=== PATIENT | male | born 1950 | race Caucasian/White ===

== ENCOUNTER 2021-04-18 14:43 | Emergency (ER) | payer OTHER ==
[~2021-04-18] VITALS: Ht 175 cm; Wt 101.6 kg
[~2021-04-18 14:43] MED LIST: CLCX200C PO; CYCL10TA9 PO; EZET1TAB43 PO; HYDR-1231 PO; LORATAB PO; METH4TAB PO; OMEP20CA12 PO; RNT150T PO; SULF1TAB38 PO; TEST200V3 IM; WRF2.5T PO; [UNRECOGNIZED DRUG - REMARK]
--- NOTE | 2021-04-18 15:12 | ED GU-Male ---
General Chief Complaint: - Reproductive Stated Complaint: SEVERE KIDNEY PAIN Source: patient Exam Limitations: no limitations History of Present Illness Date Seen by Provider: Apr 18, 2021 Time Seen by Provider: 14:57 Initial Comments Patient presents ER by private conveyance from home with chief complaint of low second day of right inguinal and right flank pain reminiscent of kidney stone. He says he took a tramadol yesterday when the pain became very intense. This is only minimal now. He thought it had gone away and passed overnight but about 4:00 in the morning he was awoken with severe pain again. He has a history of multiple kidney stones. He had to have a couple lithotripsies in the past. [facility] No nausea vomiting diarrhea or constipation. No other intra- abdominal surgeries Allergies and Home Medications Allergies Coded Allergies: No Known Drug Allergies (Unverified , 12/20/09) Patient Home Medication List Home Medication List Reviewed: Yes Cephalexin (Cephalexin) 500 Mg Tablet, 500 MG PO BID Prescribed by: LUKE SAMUELS on 04/18/21 1543 Cyclobenzaprine Hcl (Cyclobenzaprine Hcl) 10 Mg Tablet, 10 MG PO TID PRN for MUSCLE SPASMS, (Reported) Entered as Reported by: VALDEMAR PATEL on 02/03/14 1614 Hydrocodone Bit/Acetaminophen (Hydrocodone-Apap 5-325 Tablet) 1 Tab Tablet, 1 TAB PO Q4H PRN for PAIN, (Reported) Entered as Reported by: VALDEMAR PATEL on 02/03/14 1615 Omeprazole (Omeprazole) 20 Mg Capsule.dr, 20 MG PO DAILY, (Reported) Entered as Reported by: VALDEMAR PATEL on 02/03/14 1614 Ondansetron (Ondansetron Odt) 4 Mg Tab.rapdis, 4 MG PO Q6H PRN for NAUSEA/VOMI TING Prescribed by: LUKE SAMUELS on 04/18/21 1543 Ranitidine Hcl (Zantac 150 Mg) 150 Mg Tablet, 150 MG PO DAILY, (Reported) Entered as Reported by: VALDEMAR PATEL on 02/03/14 1614 Review of Systems Review of Systems Constitutional: No chills, No diaphoresis EENTM: No ear discharge, No ear pain Respiratory: No cough, No short of breath Cardiovascular: No chest pain, No palpitations Gastrointestinal: No abdominal pain, No diarrhea, No nausea, No vomiting Genitourinary: denies burning, denies discharge Musculoskeletal: back pain (Right flank); No joint pain Skin: No pruritus, No rash All Other Systemes Reviewed Negative Unless Noted: Yes Past Kvxtqwt-Bpjbtc-Cwuccf Hx Patient Social History Tobacco Use?: No Use of E-Cig and/or Vaping dev: No Substance use?: No Alcohol Use?: Yes Alcohol type: Beer Alcohol Frequency: Rarely Immunizations Up To Date Tetanus Booster (TDap): Less than 5yrs Past Medical History Kidney Stones Gastroesophageal Reflux Arthritis Skin Family Medical History Arthritis 19 FATHER 19 MOTHER G8 BROTHER G8 SISTER Colon cancer 19 FATHER 19 MOTHER Dementia 19 MOTHER Diabetes mellitus 19 FATHER Hypertension 19 FATHER Thyroid disease 19 MOTHER No Family History of: AIDS Abdominal aortic aneurysm Alcoholism Alzheimer's disease Cancer of mouth Completed stroke Drug abuse Myocardial infarction Parkinson's disease Prostate cancer Psychosocial problem Respiratory disorder Seizure disorder Severe allergy Tuberculosis Physical Exam Vital Signs Vital Signs - First Documented 04/18/21 15:00 Temp 36.2 Pulse 78 Resp 16 B/P (MAP) 154/103 (120) Pulse Ox 97 O2 Delivery Room Air Capillary Refill : Height, Weight, BMI Height: 5'9.00" Weight: 210lbs. oz. 95.312079bc; BMI Method:Stated General Appearance: WD/WN, mild distress HEENT: PERRL/EOMI, pharynx normal Neck: full range of motion, normal inspection Cardiovascular: normal peripheral pulses, regular rate, rhythm Respiratory: no respiratory distress, no accessory muscle use Gastrointestinal: soft, tenderness (Right lower quadrant without rebound tenderness Rovsing sign or mesenteric signs) Back: normal inspection, CVA tenderness (R) Neurologic/Psychiatric: alert, normal mood/affect Skin: normal color, warm/dry Progress/Results/Core Measures Suspected Sepsis SIRS Temperature: Pulse: Respiratory Rate: Blood Pressure / Mean: Results/Orders Lab Results Laboratory Tests Test 04/18/21 15:00 Range/Units Urine Color YELLOW Urine Clarity CLEAR Urine pH 5.5 5-9 Urine Specific [place] 1.025 H 1.016-1.022 Urine Protein NEGATIVE NEGATIVE Urine Glucose (UA) NEGATIVE NEGATIVE Urine Ketones NEGATIVE NEGATIVE Urine Nitrite NEGATIVE NEGATIVE Urine Bilirubin NEGATIVE NEGATIVE Urine Urobilinogen 0.2 < = 1.0 MG/DL Urine Leukocyte Esterase NEGATIVE NEGATIVE Urine RBC (Auto) 3+ H NEGATIVE Urine RBC 5-10 H /HPF Urine WBC NONE /HPF Urine Crystals PRESENT H /LPF Urine Amorphous Sediment RARE DANIA URATES H /LPF Urine Bacteria NEGATIVE /HPF Urine Casts NONE /LPF Urine Mucus NEGATIVE /LPF Urine Culture Indicated NO My Orders Orders - LUKE SAMUELS Ua Culture If Indicated (04/18/21 15:00) Ct Abd/Pelvis Wo(Kidney Stone) (04/18/21 15:05) Ketorolac Injection (Toradol Injection) (04/18/21 15:15) Abdomen/Kub 1view (04/18/21 15:06) Medications Given in ED Current Medications Medications Dose Ordered Sig/Olivier Route Start Time Stop Time Status Last Admin Dose Admin Ketorolac Tromethamine 60 mg ONCE ONCE IM 04/18/21 15:15 04/18/21 15:16 DC 04/18/21 15:45 60 MG Vital Signs/I&O 04/18/21 15:00 Temp 36.2 Pulse 78 Resp 16 B/P (MAP) 154/103 (120) Pulse Ox 97 O2 Delivery Room Air Capillary Refill : Progress Note : Time: 15:11 Progress Note Offer the patient some Toradol for pain. CT of the abdomen pelvis kidney stone study. [facility] Diagonstic Imaging: CT Plain Films/CT/US/NM/MRI: abdomen, pelvis Comments Right ureter 6 mm calculus just proximal to the ureterovesicular junction. NAME: CHARMAINE AMAYA [facility] REC#: [id number] PT STATUS: REG ER : 1950 PHYSICIAN: LUKE SAMUELS MD ADMIT DATE: 04/18/21/ER Draft Date of Exam:04/18/21 CT ABD/PELVIS WO(KIDNEY STONE) EXAMINATION: CT abdomen and pelvis without contrast. TECHNIQUE: Multiple contiguous axial images were obtained through the abdomen and pelvis without the use of intravenous contrast. All CT scans use one or more of the following dose optimizing techniques: automated exposure control, MA and/or KvP adjustment based on patient size and exam type or iterative reconstruction. HISTORY: Flank pain, kidney stone suspected COMPARISON: 08/06/2015. FINDINGS: Lung bases: There are calcified pleural plaques. Solid organs: Diffuse hypoattenuation of the liver compatible with hepatic steatosis. The gallbladder is normal. There is no biliary ductal dilation. Pancreas is normal. Spleen is normal. Adrenal glands are normal. There is a 0.7 cm calculus within the distal right ureter resulting in moderate hydronephrosis and hydroureter. Additional nonobstructing left renal calculi measuring up to 1.0 cm. Bowel: The stomach and small bowel are normal without obstruction. There are a few scattered colonic diverticula. The appendix is normal. Peritoneum: There is no intraperitoneal free fluid or free air. No suspicious lymphadenopathy. Vasculature: Calcification of the aorta without aneurysm. Musculoskeletal: Surgical and degenerative changes of the spine without suspicious osseous lesion or compression fracture. There is a small fat-containing periumbilical hernia. Pelvis: The prostate gland is normal. The urinary bladder is normal. IMPRESSION: 1. A 0.7 cm obstructing calculus within the distal right ureter resulting in right-sided hydronephrosis. 2. Additional nonobstructing renal calculi measuring up to 1.0 cm. 3. Hepatic steatosis. Dictated on workstation # [id number] Dict: 04/18/21 1526 Trans: 04/18/21 1536 [id number] Interpreted by: NAMAN OLVERA DO Electronically signed by: Reviewed: Reviewed by [place] Diagonstic Imaging: Xray Plain Films/CT/US/NM/MRI: abdomen, pelvis Comments Unremarkable bowel gas pattern. Possible shadow of a right-sided 7 mm ureterovesicular stone noted. [facility] [place] [place] NAME: CHARMAINE AMAYA [facility] REC#: [id number] PT STATUS: REG ER : 1950 PHYSICIAN: LUKE SAMUELS MD ADMIT DATE: 04/18/21/ER Draft Date of Exam:04/18/21 ABDOMEN/KUB 1VIEW INDICATION: Right Kidney stone. TECHNIQUE: Two supine views of the abdomen, 3:30 PM CORRELATION STUDY: 04/02/2011. CT 04/18/2021 FINDINGS: Calcified plaque-like densities at both lung bases. Probable hiatal hernia. Bowel gas pattern is nonobstructed. No evidence for large fecal impaction. 8 mm calcification of the right lower pelvis consistent with the known distal right ureteral stone. Additional calcifications superimposed over both kidneys, right greater than left. Large grouping of calcifications over the inferior pole of the right kidney measuring up to approximately 12 mm. Prior lumbar spine surgery with internal fixation hardware and cerclage wires at L3, L4 and L5 levels. IMPRESSION: 8 mm stone in the right hemipelvis compatible with known distal right ureteral calcification. Dictated on workstation # [id number] Dict: 04/18/21 1530 Trans: 04/18/21 1544 [facility] [id number] Interpreted by: TANA MORIN DO Electronically signed by: Reviewed: Reviewed by Me Departure Impression Primary Impression: Right ureteral calculus Disposition: HOME, SELF-CARE Condition: Stable Departure-Patient Inst. Decision time for Depature: 15:31 Referrals: DOMONIQUE PETER DO (PCP) Primary Care Physician AVTAR FIUGEROA MD Patient Instructions: Kidney Stones (DC) Add. Discharge Instructions: Drink lots of fluids. Tylenol 650 mg every 8 hours as needed for pain. Motrin 800 mg every 8 hours as needed for pain. Heat applied to the back as needed. Tramadol 1 tablet every 6 hours as necessary for breakthrough pain. Ondansetron 1 tablet every 6 hours under the tongue as necessary for nausea and/or vomiting. Keflex 1 capsule twice a day for the next week to treat possible UTI. Strain your urine using the strainer to see when the stones pass. Occasionally stones will break up and not be caught in the strainer. Symptoms should resolve 1 to 2 days after the passing of stones. If your symptoms are going on into early next week then I suggest you follow-up with Dr. Figueroa, urology. Return to the nearest ER if you are having intractable pain and/or nausea, fever etc. All discharge instructions reviewed with patient and/or family. Voiced understanding. Scripts Ondansetron (Ondansetron Odt) 4 Mg Tab.rapdis 4 MG PO Q6H PRN for NAUSEA/VOMITING, #10 TAB 0 Refills Prov: LUKE SAMUELS 04/18/21 Cephalexin (Cephalexin) 500 Mg Tablet 500 MG PO BID for 7 Days, #14 TAB 0 Refills Prov: LUKE SAMUELS 04/18/21 Copy Copies To 1: AVTAR FIGUEROA MD, TITUS J Apr 18, 2021 15:12
[2021-04-18] MEDS ORDERED: KETOROLAC 60 MG/2 ML VIAL IM ONE (15:15)
[2021-04-18 15:22] LABS: BILIRUBIN,URINE NEGATIVE (NEGATIVE); CLARITY,URINE CLEAR; COLOR,URINE YELLOW; GLUCOSE, URINE (UA) NEGATIVE (NEGATIVE); KETONES,URINE NEGATIVE (NEGATIVE); LEUKOCYTE ESTERASE ,URINE NEGATIVE (NEGATIVE); NITRITE,URINE NEGATIVE (NEGATIVE); PH,URINE 5.5 (5-9); PROTEIN,URINE NEGATIVE (NEGATIVE)
--- NOTE | 2021-04-18 15:36 | Diagnostic Imaging Report ---
EXAMINATION: CT abdomen and pelvis without contrast. TECHNIQUE: Multiple contiguous axial images were obtained through the abdomen and pelvis without the use of intravenous contrast. All CT scans use one or more of the following dose optimizing techniques: automated exposure control, MA and/or KvP adjustment based on patient size and exam type or iterative reconstruction. HISTORY: Flank pain, kidney stone suspected COMPARISON: 08/06/2015. FINDINGS: Lung bases: There are calcified pleural plaques. Solid organs: Diffuse hypoattenuation of the liver compatible with hepatic steatosis. The gallbladder is normal. There is no biliary ductal dilation. Pancreas is normal. Spleen is normal. Adrenal glands are normal. There is a 0.7 cm calculus within the distal right ureter resulting in moderate hydronephrosis and hydroureter. Additional nonobstructing left renal calculi measuring up to 1.0 cm. Bowel: The stomach and small bowel are normal without obstruction. There are a few scattered colonic diverticula. The appendix is normal. Peritoneum: There is no intraperitoneal free fluid or free air. No suspicious lymphadenopathy. Vasculature: Calcification of the aorta without aneurysm. Musculoskeletal: Surgical and degenerative changes of the spine without suspicious osseous lesion or compression fracture. There is a small fat-containing periumbilical hernia. Pelvis: The prostate gland is normal. The urinary bladder is normal. IMPRESSION: 1. A 0.7 cm obstructing calculus within the distal right ureter resulting in right-sided hydronephrosis. 2. Additional nonobstructing renal calculi measuring up to 1.0 cm. 3. Hepatic steatosis. Dictated by: Dictated on workstation # [id number]
[2021-04-18] MEDS ORDERED: CEPH500T PO (15:43)
[2021-04-18] MEDS ORDERED: ONDA4TAB11 PO (15:43)
--- NOTE | 2021-04-18 15:45 | Diagnostic Imaging Report ---
INDICATION: Right Kidney stone. TECHNIQUE: Two supine views of the abdomen, 3:30 PM CORRELATION STUDY: 04/02/2011. CT 04/18/2021 FINDINGS: Calcified plaque-like densities at both lung bases. Probable hiatal hernia. Bowel gas pattern is nonobstructed. No evidence for large fecal impaction. 8 mm calcification of the right lower pelvis consistent with the known distal right ureteral stone. Additional calcifications superimposed over both kidneys, right greater than left. Large grouping of calcifications over the inferior pole of the right kidney measuring up to approximately 12 mm. Prior lumbar spine surgery with internal fixation hardware and cerclage wires at L3, L4 and L5 levels. IMPRESSION: 8 mm stone in the right hemipelvis compatible with known distal right ureteral calcification. Dictated by: Dictated on workstation # [id number]
[2021-04-18 15:50] LABS: AMORPHOUS SEDIMENT,UR RARE AMOR URATES /LPF; BACTERIA,URINE NEGATIVE /HPF
[2021-04-18 15:54] VITALS: BP 142/94
[2021-04-19] MEDS ORDERED: CEPH500T PO (14:15)
[2021-04-19] MEDS ORDERED: ACHD5005 PO (14:15)
== END 2021-04-18 15:55 | disposition home or self-care (01) ==
LOC: EDUNIT# 14:43 → ER 14:47
DX: N13.2 Hydronephrosis with renal and ureteral calculous obstruction (principal); K21.9 Gastro-esophageal reflux disease without esophagitis; Z79.899 Other long term (current) drug therapy
CPT/HCPCS: 74018; 74176; 81000

== ENCOUNTER 2021-04-19 09:46 | Emergency (ER) | payer OTHER ==
[~2021-04-19] VITALS: Ht 174 cm; Wt 101.6 kg
[~2021-04-19 09:46] MED LIST changes: +CEPH500T PO; +ONDA4TAB11 PO
[2021-04-19] MEDS ORDERED: KETOROLAC 30 MG/ML VIAL IVP ONE (10:00)
[2021-04-19] MEDS ORDERED: LACTATED RINGERS 1,000 ML IV ONE ×2 (10:00→11:45)
[2021-04-19] MEDS ORDERED: ONDANSETRON 4 MG/2 ML (SDV) Z0FRAN IVP ONE (10:00)
[2021-04-19] MEDS ORDERED: cefTRIAXone 1 GM PRE-MIX 50 ML IV ONE (10:00)
--- NOTE | 2021-04-19 10:01 | ED GU-Male ---
General Chief Complaint: Abdominal/GI Problems Stated Complaint: KIDNEY PAIN Nursing Triage Note: PT HAS HX OF KIDNEY STONE, CONTINUED PAIN AND MILD NAUSEA, WAS SEEN HERE YESTERDAY FOR THE SAME. Source: patient Exam Limitations: no limitations History of Present Illness Date Seen by Provider: Apr 19, 2021 Time Seen by Provider: 09:45 Initial Comments Patient to the ER by private conveyance from home with chief complaint of splitting right flank pain from a second day of kidney stone. He was here yesterday and received a CT scan, dose of Toradol was lasting for about 8 or 9 hours. He took some tramadol that he had already been using and was helping with his pain but states that it is not doing anything for his pain now. Is having some nausea almost vomited in the lobby. [facility] to come out here to do what ever needed to be done. The stone was approaching 8 mm in diameter and he was encouraged to follow-up with urology. He has not made contact with him yet as he left the ER after hours. Patient states that he has been drinking lots of fluids and has only put out about 200 cc of urine since he was in the ER yesterday. He has not picked up the antibiotics yet. He takes Flomax routinely Allergies and Home Medications Allergies Coded Allergies: No Known Drug Allergies (Unverified , 12/20/09) Patient Home Medication List Home Medication List Reviewed: Yes Cephalexin (Cephalexin) 500 Mg Tablet, 500 MG PO BID Prescribed by: LUKE SAMUELS on 04/18/21 1543 Cyclobenzaprine Hcl (Cyclobenzaprine Hcl) 10 Mg Tablet, 10 MG PO TID PRN for MUSCLE SPASMS, (Reported) Entered as Reported by: VALDEMAR PATEL on 02/03/14 161 Hydrocodone Bit/Acetaminophen (Hydrocodone-Apap 5-325 Tablet) 1 Tab Tablet, 1 TAB PO Q4H PRN for PAIN, (Reported) Entered as Reported by: VALDEMAR PATEL on 02/03/14 161 Omeprazole (Omeprazole) 20 Mg Capsule.dr, 20 MG PO DAILY, (Reported) Entered as Reported by: VALDEMAR PATEL on 02/03/14 161 Ondansetron (Ondansetron Odt) 4 Mg Tab.rapdis, 4 MG PO Q6H PRN for NAUSEA/VOMITING Prescribed by: LUKE SAMUELS on 04/18/21 1543 Ranitidine Hcl (Zantac 150 Mg) 150 Mg Tablet, 150 MG PO DAILY, (Reported) Entered as Reported by: VALDEMAR PATEL on 02/03/14 1614 Review of Systems Review of Systems Constitutional: No chills, No diaphoresis EENTM: No ear discharge, No ear pain Respiratory: No cough, No short of breath Cardiovascular: No chest pain, No edema Gastrointestinal: abdominal pain; No constipation, No diarrhea Genitourinary: denies discharge, denies dysuria Musculoskeletal: back pain; No joint pain All Other Systemes Reviewed Negative Unless Noted: Yes Past Hpjcxpu-Surcjc-Dfxezq Hx Patient Social History Tobacco Use?: No Use of E-Cig and/or Vaping dev: No Immunizations Up To Date Tetanus Booster (TDap): Less than 5yrs First/Initial COVID19 Vaccinat: N/A Past Medical History Kidney Stones Gastroesophageal Reflux Arthritis Skin Family Medical History Arthritis 19 FATHER 19 MOTHER G8 BROTHER G8 SISTER Colon cancer 19 FATHER 19 MOTHER Dementia 19 MOTHER Diabetes mellitus 19 FATHER Hypertension 19 FATHER Thyroid disease 19 MOTHER No Family History of: AIDS Abdominal aortic aneurysm Alcoholism Alzheimer's disease Cancer of mouth Completed stroke Drug abuse Myocardial infarction Parkinson's disease Prostate cancer Psychosocial problem Respiratory disorder Seizure disorder Severe allergy Tuberculosis Physical Exam Vital Signs Vital Signs - First Documented 04/19/21 09:53 Temp 36.8 Pulse 71 Resp 22 B/P (MAP) 150/114 (126) Pulse Ox 97 O2 Delivery Room Air Capillary Refill : Less Than 3 Seconds Height, Weight, BMI Height: 5'9.00" Weight: 210lbs. oz. 95.502317tu; 33.00 BMI Method:Stated General Appearance: WD/WN, moderate distress HEENT: PERRL/EOMI, pharynx normal Neck: full range of motion, normal inspection Cardiovascular: normal peripheral pulses, regular rate, rhythm Respiratory: no respiratory distress, no accessory muscle use Gastrointestinal: normal bowel sounds, soft, tenderness (Right lower quadrant) Back: normal inspection, CVA tenderness (R) Neurologic/Psychiatric: alert, oriented x 3 Skin: normal color, warm/dry Progress/Results/Core Measures Suspected Sepsis SIRS Temperature: Pulse: 71 Respiratory Rate: 22 Laboratory Tests 04/19/21 10:00: White Blood Count 11.6H Blood Pressure 150 /114 Mean: 126 Laboratory Tests 04/19/21 10:00: Creatinine 1.64H, Platelet Count 218, Total Bilirubin 1.3H Results/Orders Lab Results Laboratory Tests Test 04/19/21 10:00 04/19/21 13:10 Range/Units White Blood Count 11.6 H 4.3-11.0 10^3/uL Red Blood Count 5.19 4.30-5.52 10^6/uL Hemoglobin 16.4 13.3-17.7 g/dL Hematocrit 48 40-54 % Mean Corpuscular Volume 93 80-99 fL Mean Corpuscular Hemoglobin 32 25-34 pg Mean Corpuscular Hemoglobin Concent 34 32-36 g/dL Red Cell Distribution Width 12.7 10.0-14.5 % Platelet Count 218 130-400 10^3/uL Mean Platelet Volume 9.4 9.0-12.2 fL Immature Granulocyte % (Auto) 1 % Neutrophils (%) (Auto) 79 H 42-75 % Lymphocytes (%) (Auto) 9 L 12-44 % Monocytes (%) (Auto) 10 0-12 % Eosinophils (%) (Auto) 1 0-10 % Basophils (%) (Auto) 1 0-10 % Neutrophils # (Auto) 9.1 H 1.8-7.8 10^3/uL Lymphocytes # (Auto) 1.1 1.0-4.0 10^3/uL Monocytes # (Auto) 1.2 H 0.0-1.0 10^3/uL Eosinophils # (Auto) 0.1 0.0-0.3 10^3/uL Basophils # (Auto) 0.1 0.0-0.1 10^3/uL Immature Granulocyte # (Auto) 0.1 0.0-0.1 10^3/uL Sodium Level 134 L 135-145 MMOL/L Potassium Level 4.7 3.6-5.0 MMOL/L Chloride Level 105 98-107 MMOL/L Carbon Dioxide Level 18 L 21-32 MMOL/L Anion Gap 11 5-14 MMOL/L Blood Urea Nitrogen 26 H 7-18 MG/DL Creatinine 1.64 H 0.60-1.30 MG/DL Estimat Glomerular Filtration Rate 42 BUN/Creatinine Ratio 16 Glucose Level 94 70-105 MG/DL Calcium Level 9.4 8.5-10.1 MG/DL Corrected Calcium 9.2 8.5-10.1 MG/DL Total Bilirubin 1.3 H 0.1-1.0 MG/DL Aspartate Amino Transf (AST/SGOT) 18 5-34 U/L Alanine Aminotransferase (ALT/SGPT) 20 0-55 U/L Alkaline Phosphatase 63 40-136 U/L C-Reactive Protein High Sensitivity 0.98 H 0.00-0.50 MG/DL Total Protein 6.8 6.4-8.2 GM/DL Albumin 4.2 3.2-4.5 GM/DL Urine Color YELLOW Urine Clarity SL CLOUDY Urine pH 5.5 5-9 Urine Specific [place] 1.025 H 1.016-1.022 Urine Protein NEGATIVE NEGATIVE Urine Glucose (UA) NEGATIVE NEGATIVE Urine Ketones NEGATIVE NEGATIVE Urine Nitrite NEGATIVE NEGATIVE Urine Bilirubin NEGATIVE NEGATIVE Urine Urobilinogen 0.2 < = 1.0 MG/DL Urine Leukocyte Esterase NEGATIVE NEGATIVE Urine RBC (Auto) NEGATIVE NEGATIVE Urine RBC 0-2 /HPF Urine WBC 0-2 /HPF Urine Crystals PRESENT H /LPF Urine Amorphous Sediment RARE DANIA URATES H /LPF Urine Bacteria TRACE /HPF Urine Casts NONE /LPF Urine Mucus NEGATIVE /LPF Urine Culture Indicated NO My Orders Orders - LUKE SAMUELS Cbc With Automated Diff (04/19/21 09:55) Comprehensive Metabolic Panel (04/19/21 09:55) Hs C Reactive Protein (04/19/21 09:55) Ed Iv/Invasive Line Start (04/19/21 09:55) Lactated Ringers (Lr 1000 Ml Iv Solution (04/19/21 10:00) Ketorolac Injection (Toradol Injection) (04/19/21 10:00) Ondansetron Injection (Zofran Injectio (04/19/21 10:00) Ceftriaxone 1 Gm Pre-Mix (Rocephin 1 Gm (04/19/21 10:00) Abdomen/Kub 1view (04/19/21 10:01) Ua Culture If Indicated (04/19/21 11:16) Bladder Scan (04/19/21 11:16) Ed Iv/Invasive Line Start (04/19/21 11:36) Lactated Ringers (Lr 1000 Ml Iv Solution (04/19/21 11:45) Hydrocodone/Apap 5/325 Tablet (Lortab 5 (04/19/21 13:00) Medications Given in ED Current Medications Medications Dose Ordered Sig/Olivier Route Start Time Stop Time Status Last Admin Dose Admin Acetaminophen/ Hydrocodone Bitart 1 ea ONCE ONCE PO 04/19/21 13:00 04/19/21 13:01 DC 04/19/21 13:10 1 EA Ceftriaxone Sodium/Dextrose 50 ml @ 100 mls/hr ONCE ONCE IV 04/19/21 10:00 04/19/21 10:29 DC 04/19/21 10:11 100 MLS/HR Ketorolac Tromethamine 30 mg ONCE ONCE IVP 04/19/21 10:00 04/19/21 10:01 DC 04/19/21 10:11 30 MG Lactated Ringer's 1,000 ml @ 0 mls/hr Q0M ONCE IV 04/19/21 10:00 04/19/21 10:01 DC 04/19/21 10:11 1,000 MLS/HR Lactated Ringer's 1,000 ml @ 0 mls/hr Q0M ONCE IV 04/19/21 11:45 04/19/21 11:46 DC 04/19/21 12:09 1,000 MLS/HR Ondansetron HCl 4 mg ONCE ONCE IVP 04/19/21 10:00 04/19/21 10:01 DC 04/19/21 10:11 4 MG Vital Signs/I&O 04/19/21 04/19/21 04/19/21 09:53 10:11 13:10 Temp 36.8 36.8 36.8 Pulse 71 Resp 22 B/P (MAP) 150/114 (126) Pulse Ox 97 O2 Delivery Room Air Capillary Refill : Less Than 3 Seconds Blood Pressure Mean: 126 Progress Note #1: Time: 10:01 Progress Note Will establish an IV give him a liter of fluids check labs and address his concerns of decreased urine output as well as give him some Toradol, Zofran and a gram of Rocephin IV. Progress Note #2: Time: 11:01 Progress Note Patient is back from x-ray and states his pain is now about a 2 out of 10. He is not having any nausea. He still has occasional sharp jabs down above his bladder. Stone does not appear to change location much based on plain film. He has a marginal bump in his creatinine demonstrating an CHERYL. We have given him about 250 cc out of a 1 L bag and will see if we can get him to urinate. If he is unable to urinate then we can refer him over to local urology next door since our personal urology team is unavailable until next Thursday. Progress Note #3: Time: 11:35 Progress Note Bladder scan 150 mL. Ureteral obstruction is unlikely. Progress Note #4: Time: 14:13 Progress Note We have successfully transitioned the patient to oral pain medicines. 1 tablet of [place] and he is fine. I will resend the antibiotics to [facility] as well as some pain medicine. He still has a prescription for Zofran. Follow-up with urology outpatient Diagnostic Imaging Diagonstic Imaging: Xray Plain Films/CT/US/NM/MRI: abdomen, pelvis Comments NAME: CHARMAINE AMAYA [facility] REC#: [id number] PT STATUS: REG ER : 1950 PHYSICIAN: LUKE SAMUELS MD ADMIT DATE: 04/19/21/ER Draft Date of Exam:04/19/21 ABDOMEN/KUB 1VIEW INDICATION: Right-sided stones. TIME OF EXAM: 11:01 AM Correlation is made with abdominal radiograph from one day earlier as well as CT from one day earlier. Calcific densities overlying both renal shadows again noted. The right pelvic calcification corresponding to distal right ureteric calculus appears similar to yesterday, likely near the UVJ. Additional pelvic calcifications likely represent phleboliths. There are postop changes in the lumbar spine. Bowel gas pattern is unremarkable. IMPRESSION: Bilateral nephrolithiasis. The right pelvic calculus is unchanged in position, likely within the distal right ureter near the UVJ. Dictated on workstation # [id number] Dict: 04/19/21 1101 Trans: 04/19/21 1104 CVB [id number] Interpreted by: TU BOWMAN MD Electronically signed by: Reviewed: Reviewed by Me Departure Impression Primary Impression: Right ureteral calculus Disposition: HOME, SELF-CARE Condition: Stable Departure-Patient Inst. Decision time for Depature: 14:14 Referrals: DOMONIQUE PETER DO (PCP) Primary Care Physician AVTAR FIGUEROA MD Patient Instructions: Kidney Stones in Adults, How to Strain Your Urine Add. Discharge Instructions: Drink lots of fluids. Tylenol 650 mg every 8 hours as needed for pain. Motrin 800 mg every 8 hours as needed for pain. Heat applied to the back as needed. Hydrocodone 1-2 tablets every 4 hours as necessary for breakthrough pain. Ondansetron 1 tablet every 6 hours under the tongue as necessary for nausea and/or vomiting. Keflex 1 capsule twice a day for the next week to treat possible UTI. Strain your urine using the strainer to see when the stones pass. Occasionally stones will break up and not be caught in the strainer. Symptoms should resolve 1 to 2 days after the passing of stones. If your symptoms are going on into early next week then I suggest you follow-up with Dr. Figueroa, urology. Return to the nearest ER if you are having intractable pain and/or nausea, fever etc. MiraLAX once or twice a day in addition to some Colace to stay regular. Hydrocodone will cause constipation. All discharge instructions reviewed with patient and/or family. Voiced understanding. Scripts Hydrocodone/Acetaminophen (Hydrocodone-Acetamin 5-325 mg) 1 Each Tablet 1-2 TAB PO Q4H PRN for PAIN-MODERATE (5-7), #22 TAB 0 Refills Prov: LUKE SAMUELS 04/19/21 Cephalexin (Cephalexin) 500 Mg Tablet 500 MG PO BID for 7 Days, #14 TAB 0 Refills Prov: LUKE SAMUELS 04/19/21 Copy Copies To 1: AVTAR FIGUEROA MD, TITUS J Apr 19, 2021 10:01
[2021-04-19 10:07] LABS: BASOPHILS # (AUTO) 0.1 10^3/uL (0.0-0.1); BASOPHILS % (AUTO) 1 % (0-10); EOSINOPHILS # (AUTO) 0.1 10^3/uL (0.0-0.3); EOSINOPHILS % (AUTO) 1 % (0-10); HEMATOCRIT 48 % (40-54); HEMOGLOBIN 16.4 g/dL (13.3-17.7); LYMPHOCYTES # (AUTO) 1.1 10^3/uL (1.0-4.0); LYMPHOCYTES % (AUTO) 9 % (12-44); MEAN CORPUSCULAR HEMOGLOBIN 32 pg (25-34); MEAN CORPUSCULAR HGB CONC 34 g/dL (32-36); MEAN CORPUSCULAR VOLUME 93 fL (80-99); MEAN PLATELET VOLUME 9.4 fL (9.0-12.2); MONOCYTES # (AUTO) 1.2 10^3/uL (0.0-1.0); MONOCYTES % (AUTO) 10 % (0-12); NEUTROPHILS # (AUTO) 9.1 10^3/uL (1.8-7.8); NEUTROPHILS % (AUTO) 79 % (42-75); PLATELET COUNT 218 10^3/uL (130-400); WHITE BLOOD COUNT 11.6 10^3/uL (4.3-11.0)
[2021-04-19 10:23] LABS: ALBUMIN 4.2 GM/DL (3.2-4.5); POTASSIUM 4.7 MMOL/L (3.6-5.0)
[2021-04-19 10:24] LABS: CALCIUM 9.4 MG/DL (8.5-10.1)
[2021-04-19 10:25] LABS: TOTAL PROTEIN 6.8 GM/DL (6.4-8.2)
[2021-04-19 10:27] LABS: BILIRUBIN,TOTAL 1.3 MG/DL (0.1-1.0)
[2021-04-19 10:29] LABS: CREATININE SERUM 1.64 MG/DL (0.60-1.30)
--- NOTE | 2021-04-19 11:04 | Diagnostic Imaging Report ---
INDICATION: Right-sided stones. TIME OF EXAM: 11:01 AM Correlation is made with abdominal radiograph from one day earlier as well as CT from one day earlier. Calcific densities overlying both renal shadows again noted. The right pelvic calcification corresponding to distal right ureteric calculus appears similar to yesterday, likely near the UVJ. Additional pelvic calcifications likely represent phleboliths. There are postop changes in the lumbar spine. Bowel gas pattern is unremarkable. IMPRESSION: Bilateral nephrolithiasis. The right pelvic calculus is unchanged in position, likely within the distal right ureter near the UVJ. Dictated by: Dictated on workstation # [id number]
[2021-04-19] MEDS ORDERED: HYDROcodone/APAP 5 MG/325 MG (LORTAB) TAB PO ONE (13:00)
[2021-04-19 13:30] LABS: BILIRUBIN,URINE NEGATIVE (NEGATIVE); CLARITY,URINE SL CLOUDY; COLOR,URINE YELLOW; GLUCOSE, URINE (UA) NEGATIVE (NEGATIVE); KETONES,URINE NEGATIVE (NEGATIVE); LEUKOCYTE ESTERASE ,URINE NEGATIVE (NEGATIVE); NITRITE,URINE NEGATIVE (NEGATIVE); PH,URINE 5.5 (5-9); PROTEIN,URINE NEGATIVE (NEGATIVE)
[2021-04-19 13:41] LABS: BACTERIA,URINE TRACE /HPF; RBC,URINE 0-2 /HPF; WBC,URINE 0-2 /HPF
[2021-04-19 13:42] LABS: AMORPHOUS SEDIMENT,UR RARE AMOR URATES /LPF
[2021-04-19] MEDS ORDERED: CEPH500T PO (14:15)
[2021-04-19] MEDS ORDERED: ACHD5005 PO (14:15)
[2021-04-19 14:25] VITALS: BP 142/93
== END 2021-04-19 14:24 | disposition home or self-care (01) ==
LOC: EDUNIT# 09:46 → ER 09:48
DX: N20.1 Calculus of ureter (principal); K21.9 Gastro-esophageal reflux disease without esophagitis; Z79.899 Other long term (current) drug therapy
CPT/HCPCS: 36415; 74018; 80053; 81000; 85025; 86141